=== PATIENT | male | born 2000 | race Two or more races ===

== ENCOUNTER 2022-12-09 21:59 | Emergency (ER) | payer BC, SELFPAY ==
[2022-12-09] VITALS (12 sets, daily range): BP systolic 129–155; BP diastolic 96–100; PULSE 70–107; RESP 12–27; TEMP 37; O2SAT 99–100; BMI 37.4
--- NOTE | 2022-12-09 22:17 | ECG_ITS ---
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
--- NOTE | 2022-12-09 22:53 | ED.CHESTPAI1 ---
HPI - Chest Pain General Chief Complaint: Chest Pain Stated Complaint: HYPERTENSION Time Seen by Provider: 12/09/22 22:22 Source: patient Mode of arrival: walk-in History of Present Illness HPI narrative: This 22-year-old male was transferred from [facility] detox facility for evaluation of left-sided chest pain and elevated blood pressure. The patient has been at the facility for approximately 6-7 days. He asked himself into the facility due to a history of opiate dependence. He states that he had stopped taking opiates prior to being admitted to the facility and is not experiencing any withdrawal at this time. He states for the past 3 days he has been having elevated blood pressure and woke up this morning with left-sided chest pain and diaphoresis. He denies any chest pain at this time. His blood pressure has been noted to be as high as 180/123. He was referred to the emergency department for evaluation of the chest pain and to get him on a blood pressure medication. He has no abdominal pain. He has no nausea or vomiting. The chest pain when he has it is nonradiating. He denies any dizziness or syncope. He has no lower extremity pain or swelling.He does not smoke cigarettes but does vape. Related Data Allergies Allergy/AdvReac Type Severity Reaction Status Date / Time No Known Drug Allergies Allergy Verified 12/09/22 22:04 Review of Systems ROS Status of ROS 10 or more systems reviewed and unremarkable except as noted in history and below Exam Narrative Exam Narrative: Nurses note and vital signs reviewed and patient is not hypoxic. Blood pressure noted to be elevated at triage at 155/100 General: The patient appears well and in no apparent distress. Patient is resting comfortably on cart. Skin: Warm, dry, no pallor noted. There is no rash noted. Head: Normocephalic, atraumatic Eye: Normal conjunctiva, no drainage, EOMI. PERRL Ears, Nose, Mouth, and Throat: oral mucosa is moist. Cardiovascular: Regular Rate and Rhythm S1S2, no murmur, rubs or gallops, No chest wall tenderness to palpation. Pulses are brisk and equal bilaterally. Respiratory: Patient is in no distress, no accessory muscle use, lungs are clear to auscultation, no wheezing, rales or rhonchi Back: non-tender, no CVA tenderness bilaterally to percussion. GI: Normal bowel sounds, no tenderness to palpation, no masses appreciated. No rebound, guarding, or rigidity noted. Musculoskeletal: The patient has no evidence of calf tenderness, no pitting edema, symmetrical pulses noted bilaterally Neurological: A&O x4, normal speech Psychiatric: Cooperative Constitutional Vital Signs, click to edit/add: Last Vital Signs Temp 98.6 F 12/09/22 22:05 Pulse 83 12/09/22 22:17 Resp 14 12/09/22 22:17 BP 155/100 H 12/09/22 22:05 Pulse Ox 99 12/09/22 22:05 O2 Del Method Room Air 12/09/22 22:05 Course Vital Signs Vital signs: Vital Signs Temperature 98.6 F 12/09/22 22:05 Pulse Rate 88 12/09/22 22:05 Respiratory Rate 16 12/09/22 22:05 Blood Pressure 155/100 H 12/09/22 22:05 Pulse Oximetry 99 12/09/22 22:05 Oxygen Delivery Method Room Air 12/09/22 22:05 Temperature 98.6 F 12/09/22 22:05 Pulse Rate 83 12/09/22 22:17 Respiratory Rate 14 12/09/22 22:17 Blood Pressure 155/100 H 12/09/22 22:05 Pulse Oximetry 99 12/09/22 22:05 Oxygen Delivery Method Room Air 12/09/22 22:05 MDM - Chest Pain MDM Narrative Medical decision making narrative: This 22-year-old male who is currently in detox due to opiate dependence was transferred from the detox facility for evaluation of left-sided chest pain that the patient has had intermittently for the past 3 days as well as elevated blood pressure. He does not take any blood pressure medications at home. He states he has been having intermittent episodes of chest pain for the past 3 days. He denies that he is withdrawing stating that he had artery detox himself prior to going into the rehab facility. EKG done upon arrival was a sinus rhythm at 78 beats for minute with no acute changes. He was medicated with 324 mg baby aspirin and 5 mg of oral Norvasc. Reevaluation he states he is feeling better, he is more relaxed, his routine labs including troponin are all normal. After the aspirin and blood pressure medication and his repeat blood pressure was 129/96. He will be discharged with a prescription for Norvasc to use if deemed appropriate by the nurse practitioner at the facility. He states he is only going to be in the detox facility for 2 more days. Encouraged to follow closely with his family physician in the [facility] area upon being released. Lab Data Labs: Lab Results 12/09/22 Range/Units 22:25 WBC 11.2 H (4.0-11.0) 10^3/uL RBC 5.33 (4.70-6.10) 10^6/uL Hgb 15.5 (14.0-18.0) g/dL Hct 44.2 (42.0-54.0) % MCV 82.9 (80.0-94.0) fL MCH 29.1 (25.9-34.0) pg MCHC 35.1 (29.9-35.2) g/dL RDW 12.7 (11.0-15.0) % Plt Count 357 (150-450) 10^3/uL MPV 9.4 L (9.5-13.5) fL Neut % (Auto) 64.8 (43.0-75.0) % Lymph % (Auto) 27.1 (20.5-60.0) % Craig % (Auto) 6.4 (1.7-12.0) % Eos % (Auto) 0.9 (0.9-7.0) % Baso % (Auto) 0.4 (0.2-2.0) % Neut # (Auto) 7.3 H (1.4-6.5) 10^3/uL Lymph # (Auto) 3.0 (1.2-3.8) 10^3/uL Craig # (Auto) 0.7 (0.3-0.8) 10^3/uL Eos # (Auto) 0.1 (0.0-0.7) 10^3/uL Baso # (Auto) 0.0 (0.0-0.1) 10^3/uL Abs Immat Gran (auto) 0.05 H (0.00-0.03) 10^3/uL Imm/Tot Granulo (auto) 0.4 (0.0-0.5) % Sodium 142 (136-145) mmol/L Potassium 3.7 (3.5-5.1) mmol/L Chloride 105 (98-107) mmol/L Carbon Dioxide 28.6 (21.0-32.0) mmol/L Anion Gap 12.1 BUN 10.0 (7.0-18.0) mg/dL Creatinine 1.18 (0.70-1.30) mg/dL Est GFR ( Amer) >60 (>=60) Est GFR (Non-Af Amer) >60 (>=60) BUN/Creatinine Ratio 8.5 Glucose 90 (74-106) mg/dL Calcium 9.0 (8.5-10.1) mg/dL Total Bilirubin 0.9 (0.2-1.0) mg/dL AST 31 (15-37) U/L ALT 118 H (16-63) U/L Alkaline Phosphatase 70 (46-116) U/L Troponin I High Sens 7.2 (4.0-76.1) pg/mL Total Protein 8.2 (6.4-8.2) g/dL Albumin 4.6 (3.4-5.0) g/dL Globulin 3.6 g/dL Albumin/Globulin Ratio 1.3 ECG Data Attestation: I personally reviewed and interpreted this ECG as follows: (Normal sinus rhythm at 70 bpm, normal axis, normal intervals, no acute ST segment elevation or T-wave inversion) Heart Score History: Slightly/Non-Suspicious ECG: Normal Age: <45 years Risk Factors: 1 or 2 Risk Factors Troponin: <Normal Limit Total Heart Score Recommendations & Risks:: 1 Discharge Plan Discharge Chief Complaint: Chest Pain Clinical Impression: Atypical chest pain, Hypertension Patient Disposition: Home, Self-Care Time of Disposition Decision: 23:31 Condition: Good Instructions: Chest Pain (ED), Hypertension (ED) Stand Alone Forms: Portal Instructions Referrals: Physician,Non-Staff, MD [Primary Care Provider] - 1 week
[2022-12-09 22:54] LABS: Basophils Percent Auto 0.4 % (0.2-2.0); Eosinophils Absolute Auto 0.1 10^3/uL (0.0-0.7); Eosinophils Percent Auto 0.9 % (0.9-7.0); Hematocrit 44.2 % (42.0-54.0); Hemoglobin 15.5 g/dL (14.0-18.0); Immature Granulocytes Abs Auto 0.05 10^3/uL (0.00-0.03); Immature Granulocytes Pct Auto 0.4 % (0.0-0.5); Lymphocytes Percent Auto 27.1 % (20.5-60.0); Mean Corpuscular HGB Conc 35.1 g/dL (29.9-35.2); Mean Corpuscular Hemoglobin 29.1 pg (25.9-34.0); Mean Corpuscular Volume 82.9 fL (80.0-94.0); Mean Platelet Volume 9.4 fL (9.5-13.5); Monocytes Absolute Auto 0.7 10^3/uL (0.3-0.8); Monocytes Percent Auto 6.4 % (1.7-12.0); Neutrophils Absolute Auto 7.3 10^3/uL (1.4-6.5); Neutrophils Percent Auto 64.8 % (43.0-75.0); Platelet Count 357 10^3/uL (150-450); Red Blood Count 5.33 10^6/uL (4.70-6.10); Red Cell Distribution Width 12.7 % (11.0-15.0); White Blood Count 11.2 10^3/uL (4.0-11.0)
[2022-12-09] MEDS: AMLODIPINE BESYLATE 5 MG TABLET PO (22:56)
[2022-12-09] MEDS: ASPIRIN 81 MG TAB.CHEW 324 MG PO (22:56)
[2022-12-09 23:11] LABS: Alanine Aminotransferase 118 U/L (16-63); Albumin Globulin Ratio 1.3; Albumin Level 4.6 g/dL (3.4-5.0); Alkaline Phosphatase 70 U/L (46-116); Anion Gap 12.1; Aspartate Amino Transferase 31 U/L (15-37); BUN Creatinine Ratio 8.5; Bilirubin Total 0.9 mg/dL (0.2-1.0); Carbon Dioxide 28.6 mmol/L (21.0-32.0); Chloride 105 mmol/L (98-107); Estimated GFR (African America >60 (>=60); Estimated GFR (Non-African Ame >60 (>=60); Globulin 3.6 g/dL; Glucose 90 mg/dL (74-106); Potassium 3.7 mmol/L (3.5-5.1); Sodium 142 mmol/L (136-145); Total Protein 8.2 g/dL (6.4-8.2); Troponin I High Sensitivity 7.2 pg/mL (4.0-76.1)
== END 2022-12-10 00:11 | disposition home or self-care (01) ==
PROVIDERS: Emergency Provider Emergency Medicine
DX: R07.89 Other chest pain (principal); I10 Essential (primary) hypertension; F11.21 Opioid dependence, in remission
CPT/HCPCS: 36415; 80053; 84484; 85025; 93005; 99284